=== PATIENT | female | born 1960 | race Caucasian/White ===

== ENCOUNTER → 2017-04-02 | Outpatient (CLI) | payer BC ==
--- NOTE | 2017-04-02 16:21 | RAD ---
US PELVIS W/TV Clinical Indication: Abdominal pain/discomfort, hematuria Comparison: Pelvic ultrasound dated 08/07/2011, CT abdomen and pelvis dated 12/22/2012. Technique: Real-time grayscale and color Doppler transabdominal and transvaginal pelvic ultrasound was obtained. Findings: The uterus measures 6.2 x 4.4 x 3.2 cm. It contains multiple fibroids, some of which are calcified measuring up to 1.2 x 0.9 x 0.6 cm. The endometrial thickness measures 0.5 cm. The right ovary measures 1.7 x 1.2 x 1.7 cm and is normal in appearance. The left ovary measures 1.3 x 1.3 x 1.3 cm. Normal bilateral ovarian vascular flow. No adnexal mass or free fluid. IMPRESSION: Myomatous uterus. Otherwise normal pelvic ultrasound.
--- NOTE | 2017-04-02 16:23 | RAD ---
Ultrasound abdomen Indication: Right upper quadrant pain, hematuria. History of angiosarcoma 2010 Technique: Grayscale, color Doppler and spectral waveform ultrasound images of the abdomen and bladder obtained. Comparison: CT abdomen pelvis from 2013 Findings: The bladder is optimally distended without focal lesion. Bilateral ureteral jets are visualized. The visualized pancreas is within normal limits. The aorta is visualized. The mid aortic segment measures 1.8 cm in diameter and is within normal limits. IVC visualized. Gallstone noted. No pericholecystic fluid or gallbladder wall thickening. Gallstone measures 2.2 cm. Main portal vein is patent with hepatopedal flow. CBD measures 5 mm and is within normal limits. 4 cm anechoic cyst is seen within the liver with posterior acoustic enhancement also seen on previous CT from 2013 compatible with cystic biliary hamartoma. The liver measures 13.3 cm in length and is normal in size and echogenicity. The right kidney measures 10 cm in length without evidence of hydronephrosis. The left kidney measures 10.3 cm in length without evidence of hydronephrosis. The spleen measures 8 cm and is normal in size. Impression: 1. Cholelithiasis without imaging evidence of acute cholecystitis. 2. 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
== END | disposition home or self-care (01) ==
LOC: US 08:03
PROVIDERS: ATTEND Physician Assistant
DX: K80.20 Calculus of gallbladder without cholecystitis without obstruction (principal); K76.89 Other specified diseases of liver; N32.89 Other specified disorders of bladder
CPT/HCPCS: 76700; 76830; 76856

== ENCOUNTER → 2018-05-11 | Outpatient (CLI) | payer BC ==
[~2018-05-11] MED LIST: HYDR-1179 PO
--- NOTE | 2018-05-11 12:13 | RAD ---
EXAM: Abdomen sonogram. HISTORY: Right upper quadrant pain. TECHNIQUE: Sonographic imaging of the abdomen was performed. COMPARISON: 04/02/2017. FINDINGS: The liver is normal in size. There is hepatic steatosis. There is a 3.6 cm right hepatic cyst. There is cholelithiasis. The common bile duct is normal in caliber. The kidneys are normal in size. There is no solid or cystic renal lesion or hydronephrosis. The bladder, spleen, aorta and inferior vena cava are unremarkable. IMPRESSION: 1. Hepatic steatosis. 2. 3.6 cm hepatic cyst. 3. Cholelithiasis. Electronically signed by: Xiomara Campuzano MD (05/11/2018 12:09 PM) [facility] [place]
== END | disposition home or self-care (01) ==
LOC: US 11:25
PROVIDERS: ATTEND Family Medicine
DX: K76.0 Fatty (change of) liver, not elsewhere classified (principal); K76.89 Other specified diseases of liver; K80.20 Calculus of gallbladder without cholecystitis without obstruction
CPT/HCPCS: 76700

== ENCOUNTER 2018-05-12 17:35 | Emergency (ER) | payer OTHER, BC ==
[~2018-05-12] VITALS: Ht 162.6 cm; Wt 79.4 kg
--- NOTE | 2018-05-12 17:39 | ED.ADGEN ---
Adult General Chief Complaint Chief Complaint ".. I was running to answer the phone and twisted this Rt. ankle...".. " It hurts too much to walk on it... " HPI HPI Patient is a 57 year old female who presents with above hx with injury to Rt. ankle and foot while at work. Pt. has obvious edema to ankle and foot. Some laxity anterior ligaments. Injury was inversion type mechanism. Distal neurovascular equal to Lt foot. No upper leg tenderness. No other injuries reported. Review of Systems Review of Systems Constitutional: Denies fever or chills [] Eyes: Denies change in visual acuity, redness, or eye pain [] HENT: Denies nasal congestion or sore throat [] Respiratory: Denies cough or shortness of breath [] Cardiovascular: No additional information not addressed in HPI [] GI: Denies abdominal pain, nausea, vomiting, bloody stools or diarrhea [] : Denies dysuria or hematuria [] Musculoskeletal: Denies back pain. []Complaints of Rt. foot and ankle pain. Integument: Denies rash or skin lesions [] Neurologic: Denies headache, focal weakness or sensory changes [] Endocrine: Denies polyuria or polydipsia [] All other systems were reviewed and found to be within normal limits, except as documented in this note. Family History Family History Non-contributory Current Medications Current Medications Current Medications Medications (Trade) Dose Ordered Sig/Oz Start Time Stop Time Status Last Admin Dose Admin Acetaminophen/ Hydrocodone Bitart (Lortab 7.5/325) 1 tab STK-MED ONCE 05/12/18 18:36 05/12/18 18:37 DC Hydrocodone Bitartrate/ Ibuprofen (Vicoprofen 7.5-200) 2 tab 1X ONCE 05/12/18 18:00 05/12/18 19:54 DC 05/12/18 18:39 2 TAB See Nursing for home meds Allergies Allergies Allergies Coded Allergies Type Severity Reaction Last Updated Verified No Known Drug Allergies 05/12/18 No Physical Exam Physical Exam Constitutional: in acute distress, non-toxic appearance. [] HENT: Normocephalic, atraumatic, bilateral external ears normal, oropharynx moist, no oral exudates, nose normal. [] Eyes: PERRLA, EOMI, conjunctiva normal, no discharge. [] Neck: Normal range of motion, no tenderness, supple, no stridor. [] Cardiovascular:Heart rate regular rhythm, no murmur [] Lungs & Thorax: Bilateral breath sounds equal at apex on auscultation [] Abdomen: Bowel sounds normal, soft, no tenderness, no masses, no pulsatile masses. [] Skin: Warm, dry, no erythema, no rash. [] Back: No tenderness, no CVA tenderness. [] Extremities: No tenderness, no cyanosis, no clubbing, ROM intact, no edema. [] Except findings in Rt. ankle and foot. Neurologic: Alert and oriented X 3, normal motor function, normal sensory function, no focal deficits noted. [] Psychologic: Affect anxious, judgement normal, mood normal. [] Current Patient Data Vital Signs Vital Signs Date Time Temp Pulse Resp B/P (MAP) Pulse Ox O2 Delivery O2 Flow Rate FiO2 05/12/18 17:50 98.1 82 22 97 Room Air EKG EKG [] Radiology/Procedures Radiology/Procedures My interpretation of Rt. foot and ankle shows avulsion fx. fibular tip. Edema[ ] Course & Med Decision Making Course & Med Decision Making Pertinent Labs and Imaging studies reviewed. (See chart for details). Pt. use ice packs, elevated, splint, crutches, tylenol and ibuprofen for pain. Take Vicoprofen marked discomfort.. Must follow up work comp. Would also follow with primary. May need orthopedic consult. Distal neurovascular intact post splint. [] Final Impression Final Impression 1. Ankle / Foot Sprain[]Rt., 2. Fibular Fx Dragon Disclaimer Dragon Disclaimer This electronic medical record was generated, in whole or in part, using a voice recognition dictation system. Dragon Disclaimer This chart was dictated in whole or in part using Voice Recognition software in a busy, high-work load, and often noisy Emergency Department environment. It may contain unintended and wholly unrecognized errors or omissions. Discharge Summary Visit Information Final Diagnosis Problems Medical Problems: (1) Ankle sprain Status: Acute (2) Fibula fracture Status: Acute (3) Foot sprain Status: Acute Brief Hospital Course Allergies Allergies Coded Allergies Type Severity Reaction Last Updated Verified No Known Drug Allergies 05/12/18 No Vital Signs Vital Signs Date Time Temp Pulse Resp B/P (MAP) Pulse Ox O2 Delivery O2 Flow Rate FiO2 05/12/18 17:50 98.1 82 22 97 Room Air Brief Hospital Course Ms. Brown is a 57 old female who presented with injury to Rt foot and ankle running to answer phone at work. Has sprain and avulsion fx. tip fibular Rt. Discharge Information Condition at Discharge: Improved, Stable Disposition/Orders: D/C to Home Dischare Medications Current Medications Hydrocodone Bitartrate/ Ibuprofen (Vicoprofen 7.5-200) 2 tab 1X ONCE PO Last administered on 05/12/18at 18:39; Admin Dose 2 TAB; Start 05/12/18 at 18:00; Stop 05/12/18 at 19:54; Status DC Acetaminophen/ Hydrocodone Bitart (Lortab 7.5/325) 1 tab STK-MED ONCE .ROUTE ; Start 05/12/18 at 18:35; Stop 05/12/18 at 18:36; Status DC Acetaminophen/ Hydrocodone Bitart (Lortab 7.5/325) 1 tab STK-MED ONCE .ROUTE ; Start 05/12/18 at 18:36; Stop 05/12/18 at 18:37; Status DC Active Scripts Active Hydrocodone-Ibuprofen 7.5-200 (Hydrocodone/Ibuprofen) 1 Each Tablet 1 Tab PO PRN Q6HRS PRN BEN BAI MD May 12, 2018 17:39
[2018-05-12 17:50] VITALS: BP 168/110
[2018-05-12] MEDS ORDERED: HYDROcodon/IBUPROFEN 7.5/200MG 1 TAB TABLET PO ONE (18:00)
[2018-05-12] MEDS ORDERED: HYDR-1179 PO (18:32)
[2018-05-12] MEDS ORDERED: HYDROcodone/APAP 7.5/325MG 1 TAB TABLET ONE ×2 (18:35→18:36)
--- NOTE | 2018-05-13 00:49 | RAD ---
Right foot 3 views, right ankle 3 views. HISTORY: Sprained ankle, swelling foot and ankle Right foot 3 views were taken of the right foot. There is not evidence of an acute fracture or osseous abnormality. Right ankle 3 views were taken of the right ankle. There is a small avulsion fracture at the tip of the lateral malleolus. There is soft tissue swelling. There is no other fracture noted at the right ankle. IMPRESSION: 1. Small avulsion fracture at the tip of the lateral malleolus. 2. No other right ankle fracture. 3. Soft tissue swelling especially laterally at the ankle. 4. No fracture or osseous abnormality in the right foot. Electronically signed by: Salty Odonnell MD (05/13/2018 12:45 AM) [id number]
== END 2018-05-12 19:30 | disposition home or self-care (01) ==
LOC: ER 17:35
DX: S82.61XA Displaced fracture of lateral malleolus of right fibula, initial encounter for closed fracture (principal); S93.401A Sprain of unspecified ligament of right ankle, initial encounter; S93.601A Unspecified sprain of right foot, initial encounter; X50.1XXA Overexertion from prolonged static or awkward postures, initial encounter; Y93.89 Activity, other specified; Y92.89 Other specified places as the place of occurrence of the external cause; Y99.8 Other external cause status
CPT/HCPCS: 29515; 73610; 73630; 99283